=== PATIENT | male | born 1945 | race Two or more races ===

== ENCOUNTER 2021-07-26 16:26 | Emergency (ER) | payer OTHER ==
[~2021-07-26] VITALS: Ht 193 cm; Wt 106.6 kg
[2021-07-26] MEDS ORDERED: ATORVASTATIN CA10 MG PO (16:41)
== END 2021-07-26 21:52 | disposition home or self-care (01) ==
LOC: ER 16:26
DX: A05.9 Bacterial foodborne intoxication, unspecified (principal)